=== PATIENT | male | born 1950 | race Caucasian/White ===

== ENCOUNTER → 2024-01-30 13:03 | Outpatient (REF) | payer MEDICARE, OTHER, SELFPAY | LOC: RAD 13:03 | PROVIDERS: ATTENDING PHYSICIAN Internal Medicine Critical Care Medicine; FAMILY PHYSICIAN Internal Medicine | DX: R93.89 Abnormal findings on diagnostic imaging of other specified body structures (principal) | CPT/HCPCS: 71046 ==

== ENCOUNTER 2024-05-06 09:51 | Day surgery (SDC) | payer MEDICARE, OTHER, SELFPAY ==
[2024-05-06] VITALS (16 sets, daily range): BP systolic 123–148; BP diastolic 66–75; BMI 24.0
[2024-05-06] MEDS: NSS 234 ML IV (10:25)
[2024-05-06] MEDS: ASPIR LOW (ENTERIC COATED) 81 MG PO (10:31)
--- NOTE | 2024-05-06 11:37 | ITS.CL.CATH ---
[facility] - Catheterization
Cardiac Catheterization
Procedure Report:
LEFT HEART CATHETERIZATION
Date of Procedure: 05/06/2024
Procedures performed:
1: Coronary angiography
2: Left ventriculography
Primary Care Physician: Dr. Kendrick Santillan
Primary Pattern Worker: Dr. Humberto Fisher
INDICATION: The patient is a 74-year-old man with a past medical history significant for prior DVT and GERD who presents with increasing exertional dyspnea. Echocardiography performed on April 30 showed preserved LV systolic function with no
clear regional wall motion abnormalities. Mild to moderate mitral regurgitation was noted. RV size and function was normal. The patient underwent exercise nuclear stress testing yesterday and walked 9 minutes reporting exertional dyspnea and
chest tightness. Nuclear imaging suggested possible LAD and RCA ischemia.
ACCESS: The patient was prepped and draped in usual sterile fashion. A 6 [place] sheath was placed in the right radial artery using the Seldinger over the wire technique.
HEMODYNAMIC FINDINGS (mmHg):
LV(s/d,EDP): 150/11, 23
Ao(s/d,m): 150/71, 98
ANGIOGRAPHIC FINDINGS:
Single-plane Left Ventriculography in DIAZ Projection: Not done. Normal LVEF by recent echo.
Coronary Angiography:
Dominance: Left
Left Main: Normal
Left Anterior Descending: The left anterior descending artery is a medium caliber vessel that gives rise to 2 small diagonal branches. All vessels are widely patent. There is moderate mid LAD calcification noted with at worst a 30% proximal/mid
lesion. All vessels have normal distal flow.
Left Circumflex: The left circumflex is a large-caliber dominant system that gives rise to 3 major obtuse marginal branches a small left-sided posterior left ventricular branch and medium caliber left-sided posterior descending artery. These
vessels are widely patent without focal disease. Normal flow in all vessels.
Right Coronary: Small non-dominant vessel with mild luminal irregularities.
Fluoroscopy Time (min): 2.6
Radiation Dose (mGy): 249
DAP (Gy.cm2): 19.4
Closure device: None. A TR band was applied for hemostasis at the right wrist.
Complications: None.
ASSESSMENT:
1: Very mild nonobstructive coronary artery disease.
2: Mildly elevated left ventricular filling pressures in the setting of systemic hypertension.
CONCLUSIONS and RECOMMENDATIONS:
1: Medical therapy for mild nonobstructive coronary artery disease with ongoing workup for progressive exertional dyspnea.
Michael Krause M.D.
Copy: Dr. Kendrick Santillan
[2024-05-06] MEDS: NSS 1000 IV (11:42)
[2024-05-06 14:35] LABS: ACT-LR - POC > 397 Seconds (116-155)
[2024-05-06] MEDS: TYLENOL 650 MG PO (15:03)
== END 2024-05-06 15:15 | disposition home or self-care (01) ==
LOC: CATH 09:51
PROVIDERS: ATTENDING PHYSICIAN Internal Medicine Interventional Cardiology; FAMILY PHYSICIAN Internal Medicine; OTHER PHYSICIAN Internal Medicine Cardiovascular Disease
DX: I25.10 Atherosclerotic heart disease of native coronary artery without angina pectoris (principal); I34.0 Nonrheumatic mitral (valve) insufficiency; I10 Essential (primary) hypertension; R06.09 Other forms of dyspnea; R07.89 Other chest pain; K21.9 Gastro-esophageal reflux disease without esophagitis; Z79.82 Long term (current) use of aspirin
CPT/HCPCS: 85347; 93458; C1894; Q9967

== ENCOUNTER → 2024-05-14 10:24 | Outpatient (REF) | payer MEDICARE, OTHER, SELFPAY | LOC: RAD 10:24 | PROVIDERS: ATTENDING PHYSICIAN Nurse Practitioner Adult Health; FAMILY PHYSICIAN Internal Medicine; REFERRING PHYSICIAN Internal Medicine Cardiovascular Disease | DX: R06.09 Other forms of dyspnea (principal); R06.89 Other abnormalities of breathing; Z86.718 Personal history of other venous thrombosis and embolism; R60.0 Localized edema; M79.604 Pain in right leg; M79.605 Pain in left leg | CPT/HCPCS: 71046; 78582; 93970; A9540; A9567 ==

== ENCOUNTER → 2024-05-19 09:15 | Outpatient (REF) | payer MEDICARE, OTHER, SELFPAY | LOC: DHSLP 09:15 | PROVIDERS: ATTENDING PHYSICIAN Internal Medicine Critical Care Medicine; FAMILY PHYSICIAN Internal Medicine | DX: G47.33 Obstructive sleep apnea (adult) (pediatric) (principal); G47.31 Primary central sleep apnea; G47.00 Insomnia, unspecified; G47.52 REM sleep behavior disorder | CPT/HCPCS: 95810 ==

== ENCOUNTER → 2025-01-03 07:30 | Outpatient (REF) | payer MEDICARE, OTHER, SELFPAY | LOC: RAD 07:30 | PROVIDERS: ATTENDING PHYSICIAN Internal Medicine Hematology & Oncology | DX: I82.402 Acute embolism and thrombosis of unspecified deep veins of left lower extremity (principal); D83.0 Common variable immunodeficiency with predominant abnormalities of B-cell numbers and function; D80.1 Nonfamilial hypogammaglobulinemia; G47.33 Obstructive sleep apnea (adult) (pediatric); D50.9 Iron deficiency anemia, unspecified; M79.604 Pain in right leg | CPT/HCPCS: 93970 ==